=== PATIENT | male | born 1955 | race Caucasian/White ===

== ENCOUNTER 2021-01-12 09:54 | Emergency (ER) | payer MEDICARE ==
[~2021-01-12] VITALS: Ht 177.8 cm; Wt 109.1 kg
[2021-01-12 10:00] VITALS: TEMP 98.7
[2021-01-12] MEDS ORDERED: BACTRIM DS 8001 TAB PO (10:24)
[2021-01-12] MEDS ORDERED: CEPHALEXIN500 M1 PO (10:24)
[2021-01-12 10:31] VITALS: BP 145/96; PULSE 76
== END 2021-01-12 10:31 | disposition home or self-care (01) ==
LOC: COL.ER 09:54
DX: L03.317 Cellulitis of buttock (principal); I10 Essential (primary) hypertension

== ENCOUNTER 2021-01-14 07:21 | Emergency (ER) | payer MEDICARE ==
[~2021-01-14] VITALS: Ht 175.3 cm; Wt 109.1 kg
[~2021-01-14 07:21] MED LIST: BACTRIM DS 8001 TAB PO; CEPHALEXIN500 M1 PO
[2021-01-14] MEDS ORDERED: AMOXICILLIN 8751 TAB PO (11:50)
[2021-01-14 12:05] VITALS: BP 139/90; PULSE 81; TEMP 98.9
== END 2021-01-14 12:05 | disposition home or self-care (01) ==
LOC: COL.ER 07:21
DX: L03.317 Cellulitis of buttock (principal); K61.1 Rectal abscess; I10 Essential (primary) hypertension